=== PATIENT | female | born 1945 | race Caucasian/White ===

== ENCOUNTER 2016-06-17 22:46 | Emergency (ER) | payer MEDICARE, MEDICAID ==
[2016-06-17] MEDS ORDERED: Sodium Chloride 0.9% 10 ML Syringe FLUSH PRN (23:00)
[2016-06-17] MEDS ORDERED: Lactated Ringers 1,000 ML IV SCH (23:00)
--- NOTE | 2016-06-17 23:11 | EDM.PDOC ---
ED HPI ALTERED MENTAL STATUS - General Chief Complaint: General Stated Complaint: Increase lethargy; altered mental status Time Seen by Provider: 06/17/16 22:58 Source of Information: Reports: EMS notes reviewed, care home records, RN, RN notes reviewed History Limitations: Reports: Altered mental status - History of Present Illness INITIAL COMMENTS - FREE TEXT/NARRATIVE: History is obtained from residential and EMS staff. 70-year-old patient with a past medical history of breast cancer, diabetes, anemia, hyperlipidemia he is brought to the emergency room at [facility] via EMS for altered mental status and lethargy. The residential records state that the patient over the past 5 days has had a significant change in her activities of daily living. The residential states the patient has become very pale and lethargic. She has needed supplemental oxygen. The patient has had significant significant weakness. 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 The family has requested the patient be ruled out for a stroke and also rehydrated. 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, IV - Related Data Allergies/ADRs: Allergies codeine Allergy (Verified 06/17/16 23:19) Other mold Allergy (Verified 06/17/16 23:19) Other pollen extracts Allergy (Verified 06/17/16 23:19) Other thiothixene [From Navane] Allergy (Verified 06/17/16 23:19) Other Home Meds: Home Meds Acetaminophen 650 mg PO Q4HR PRN 06/17/16 [History] Aspirin [Ecotrin] 81 mg PO DAILY 06/17/16 [History] Bisacodyl 10 mg PO DAILY PRN 06/17/16 [History] Bisacodyl 10 mg RC DAILY PRN 06/17/16 [History] Calcium Citrate/Vitamin D3 [Calcium Citrate + D] 1 tab PO BIDMEALS 06/17/16 [ History] Ciclopirox 1 applic TP DAILY 06/17/16 [History] ClonazePAM [KlonoPIN] 1 mg PO TID 06/17/16 [History] Dextran 70/Hypromellose [Artificial Tears] 3 each OP TID 06/17/16 [History] Fenofibrate 54 mg PO BEDTIME 06/17/16 [History] Ferrous Gluconate 324 mg PO DAILY 06/17/16 [History] LORazepam 1 mg PO TID PRN 06/17/16 [History] Mag Hydrox/Al Hydrox/Simeth [Rulox] 30 ml PO QID PRN 06/17/16 [History] Multivitamin [Daily Multiple Vitamin] 1 tab PO DAILY 06/17/16 [History] Ondansetron HCl [Zofran] 4 mg PO Q4HR PRN 06/17/16 [History] Polyethylene Glycol 3350 [MiraLAX] 17 gm PO DAILY 06/17/16 [History] Ranitidine [Zantac] 150 mg PO BID 06/17/16 [History] Sennosides/Docusate Sodium [Senna Plus Tablet] 3 tab PO TID 06/17/16 [History] Sertraline [Zoloft] 200 mg PO DAILY 06/17/16 [History] Simvastatin [Zocor] 20 mg PO BEDTIME 06/17/16 [History] cloZAPine [Clozapine] 200 mg PO DAILY 06/17/16 [History] cloZAPine [Clozapine] 300 mg PO DAILY 06/17/16 [History] Past Medical History Cardiovascular History: Reports: High cholesterol, Hypertension Respiratory History: Reports: Sleep apnea Gastrointestinal History: Reports: Chronic constipation, GERD Other Neuro History: RLS Psychiatric History: Reports: Anxiety, Bipolar, Dementia, Depression, Schizophrenia Other Psychiatric History: Social Phobia Hematologic History: Reports: Anemia Oncologic (Cancer) History: Reports: Breast Social & Family History - Family History Family Medical History: Noncontributory - Tobacco Use Smoking Status *Q: Never Smoker Tobacco Use Within Last Twelve Months: No - Tobacco Core Measures Tobacco Use/Smoking Within Last 30 Days: No - Caffeine Use Caffeine Use: Reports: None - Alcohol Use Alcohol Use History: No Alcohol Use in Last Twelve Months: No - Recreational Drug Use Recreational Drug Use: No Drug Use in Last 12 Months: No - Living Situation & Occupation Living situation: Reports: , extended care facility ED ROS GENERAL - Review of Systems Review Of Systems: ROS reveals no pertinent complaints other than HPI. Constitutional: Reports: weakness. Denies: fever, chills HEENT: Reports: No symptoms Respiratory: Denies: Shortness of Breath, Cough Cardiovascular: Denies: Chest pain, Palpitations GI/Abdominal: Denies: Abdominal pain, Nausea, Vomiting Skin: Reports: no symptoms Neurological: Reports: Difficulty Walking, Weakness, Gait Disturbance. Denies: Dizziness, Headache - Physical Exam Exam: See Below Exam Limited By: No limitations General Appearance: no apparent distress, lethargic, obese Eye Exam: bilateral eye: normal inspection, PERRL Head Exam: atraumatic, normocephalic Neck: supple Respiratory/Chest: no respiratory distress, lungs clear, normal breath sounds Cardiovascular: regular rate, rhythm GI/Abdominal: soft, non tender, abnormal bowel sounds: (hypoactive) Neuro Exam (Abbreviated): disoriented, slow to respond, other (Responds to painful stimuli; does not follow commands; is able to answer with one or two words) Extremities: pedal edema Skin Exam: Warm, Dry, Intact, Normal color, No rash Course - Orders/Labs/Meds Orders: Active Orders 24 hr Category Date Time Status Head wo Cont [CT] Stat Exams 06/17/16 22:58 Taken Lactated Ringers [Ringers, Lactated] 1,000 ml Med 06/17/16 23:00 Active IV ASDIRECTED Sodium Chloride 0.9% [Saline Flush] Med 06/17/16 23:00 Active 10 ml FLUSH ASDIRECTED PRN Peripheral IV Insertion Adult [OM.PC] Routine Oth 06/17/16 23:00 Ordered Medication Orders Lactated Ringer's (Ringers, Lactated) 1,000 mls @ 999 mls/hr IV ASDIRECTED VERONICA Sodium Chloride (Saline Flush) 10 ml FLUSH ASDIRECTED PRN PRN Reason: Keep Vein Open Labs: Laboratory Tests 06/17/16 06/17/16 06/17/16 Range/Units 23:15 23:15 23:15 WBC 3.2 L (4.0-10.0) x10^3/uL RBC 3.61 L (4.00-5.50) x10^6/uL Hgb 11.7 L (12.0-16.0) g/dL Hct 34.7 (33.0-47.0) % MCV 96.1 H (78.0-93.0) fL MCH 32.4 H (26.0-32.0) pg MCHC 33.7 (32.0-36.0) g/dL RDW Coeff of Sampson 19.8 H (10.0-15.0) % Plt Count 71 L (130-400) x10^3/uL Neut % (Auto) 50.2 (50.0-80.0) % Lymph % (Auto) 38.0 (25.0-50.0) % Meigs % (Auto) 11.2 H (2.0-11.0) % Eos % (Auto) 0.3 (0.0-4.0) % Baso % (Auto) 0.3 (0.2-1.2) % Sodium 140 (136-145) mmol/L Potassium 4.1 (3.5-5.1) mmol/L Chloride 105 (98-107) mmol/L Carbon Dioxide 28 (21-32) mmol/L BUN 24 H (7-18) mg/dL Creatinine 1.3 H (0.55-1.02) mg/dL Est Cr Clr Drug Dosing TNP Estimated GFR (MDRD) 41 Glucose 126 H (74-106) mg/dL Lactic Acid 1.4 (0.4-2.0) mmol/L Calcium 8.6 (8.5-10.1) mg/dL Corrected Calcium 9.64 (8.5-10.1) mg/dL Phosphorus 3.7 (2.6-4.7) mg/dL Magnesium 2.3 (1.8-2.4) mg/dL Total Bilirubin 0.7 (0.2-1.0) mg/dL AST 281 H (15-37) U/L ALT 95 H (14-59) U/L Alkaline Phosphatase 413 H (46-116) U/L C-Reactive Protein 9.2 H (<=0.9) mg/dL Total Protein 6.7 (6.4-8.2) g/dL Albumin 2.7 L (3.4-5.0) g/dL Globulin 4.0 Albumin/Globulin Ratio 0.68 Urine Color (YELLOW) Urine Appearance (CLEAR) Urine pH (5.0-8.0) Ur Specific Frakes Urine Protein (NEGATIVE) mg/dL Urine Glucose (UA) (NEGATIVE) mg/dL Urine Ketones (NEGATIVE) mg/dL Urine Occult Blood (NEGATIVE) Urine Nitrite (NEGATIVE) Urine Bilirubin (NEGATIVE) Urine Urobilinogen (0.2) EU/dL Ur Leukocyte Esterase (NEGATIVE) Urine RBC (NOT SEEN) /HPF Urine WBC (NOT SEEN) /HPF Ur Squamous Epith Cells (NEGATIVE) /HPF Ur Renal Epithelial Cell (NEGATIVE) /HPF Urine Bacteria (NEGATIVE) /HPF Urine Mucus (NEGATIVE) /LPF 06/17/16 Range/Units 23:38 WBC (4.0-10.0) x10^3/uL RBC (4.00-5.50) x10^6/uL Hgb (12.0-16.0) g/dL Hct (33.0-47.0) % MCV (78.0-93.0) fL MCH (26.0-32.0) pg MCHC (32.0-36.0) g/dL RDW Coeff of Sampson (10.0-15.0) % Plt Count (130-400) x10^3/uL Neut % (Auto) (50.0-80.0) % Lymph % (Auto) (25.0-50.0) % Meigs % (Auto) (2.0-11.0) % Eos % (Auto) (0.0-4.0) % Baso % (Auto) (0.2-1.2) % Sodium (136-145) mmol/L Potassium (3.5-5.1) mmol/L Chloride (98-107) mmol/L Carbon Dioxide (21-32) mmol/L BUN (7-18) mg/dL Creatinine (0.55-1.02) mg/dL Est Cr Clr Drug Dosing Estimated GFR (MDRD) Glucose (74-106) mg/dL Lactic Acid (0.4-2.0) mmol/L Calcium (8.5-10.1) mg/dL Corrected Calcium (8.5-10.1) mg/dL Phosphorus (2.6-4.7) mg/dL Magnesium (1.8-2.4) mg/dL Total Bilirubin (0.2-1.0) mg/dL AST (15-37) U/L ALT (14-59) U/L Alkaline Phosphatase (46-116) U/L C-Reactive Protein (<=0.9) mg/dL Total Protein (6.4-8.2) g/dL Albumin (3.4-5.0) g/dL Globulin Albumin/Globulin Ratio Urine Color Dark yellow H (YELLOW) Urine Appearance Clear (CLEAR) Urine pH 6.0 (5.0-8.0) Ur Specific Frakes >=1.030 Urine Protein 30 H (NEGATIVE) mg/dL Urine Glucose (UA) Negative (NEGATIVE) mg/dL Urine Ketones Negative (NEGATIVE) mg/dL Urine Occult Blood Trace-intact H (NEGATIVE) Urine Nitrite Negative (NEGATIVE) Urine Bilirubin Negative (NEGATIVE) Urine Urobilinogen 1.0 (0.2) EU/dL Ur Leukocyte Esterase Negative (NEGATIVE) Urine RBC 0-5 (NOT SEEN) /HPF Urine WBC 0-5 (NOT SEEN) /HPF Ur Squamous Epith Cells Many H (NEGATIVE) /HPF Ur Renal Epithelial Cell Rare H (NEGATIVE) /HPF Urine Bacteria Not seen (NEGATIVE) /HPF Urine Mucus Many H (NEGATIVE) /LPF Meds: Medications Generic Name Dose Route Start Last Admin Trade Name Freq PRN Reason Stop Dose Admin Lactated Ringer's 1,000 mls @ 999 mls/hr 06/17/16 23:00 Ringers, Lactated IV ASDIRECTED VERONICA Sodium Chloride 10 ml 06/17/16 23:00 Saline Flush FLUSH ASDIRECTED PRN Keep Vein Open - Radiology Interpretation Free Text/Narrative:: See scanned report CT Results Date: 06/17/16 CT Results Time: 23:53 Departure - Departure Time of Disposition: 23:58 Disposition: Home, Self-Care 01 Condition: fair Clinical Impression: Dehydration Altered mental status, unspecified Qualifiers: Altered mental status type: somnolence Qualified Code(s): R40.0 - Somnolence Referrals: Dexter Del Rio MD [Primary Care Provider] - Forms: ED Department Discharge - Problem List Review Problem List Initiated/Reviewed/Updated: Yes - My Orders Last 24 Hours: My Active Orders 06/17/16 22:58 Head wo Cont [CT] Stat 06/17/16 23:00 Lactated Ringers [Ringers, Lactated] 1,000 ml IV ASDIRECTED Sodium Chloride 0.9% [Saline Flush] 10 ml FLUSH ASDIRECTED PRN Peripheral IV Insertion Adult [OM.PC] Routine - Assessment/Plan Last 24 Hours: My Active Orders 06/17/16 22:58 Head wo Cont [CT] Stat 06/17/16 23:00 Lactated Ringers [Ringers, Lactated] 1,000 ml IV ASDIRECTED Sodium Chloride 0.9% [Saline Flush] 10 ml FLUSH ASDIRECTED PRN Peripheral IV Insertion Adult [OM.PC] Routine
[2016-06-17 23:41] LABS: CHLORIDE,CL 105 mmol/L (98-107); SODIUM,NA 140 mmol/L (136-145)
[2016-06-18 00:48] VITALS: BP 127/75
== END 2016-06-18 01:02 | disposition home or self-care (01) ==
LOC: VM.ED 22:46
DX: E86.0 Dehydration (principal); R40.0 Somnolence; E78.00 Pure hypercholesterolemia, unspecified; I10 Essential (primary) hypertension; K21.9 Gastro-esophageal reflux disease without esophagitis; F41.9 Anxiety disorder, unspecified; F31.9 Bipolar disorder, unspecified; D64.9 Anemia, unspecified; Z88.5 Allergy status to narcotic agent; Z91.09 Other allergy status, other than to drugs and biological substances; Z88.8 Allergy status to other drugs, medicaments and biological substances; Z79.82 Long term (current) use of aspirin; Z79.899 Other long term (current) drug therapy
CPT/HCPCS: 36415; 70450; 80053; 81001; 83605; 83735; 84100; 85025; 86140; 96360; 99285; J7120; 99284-GF